=== PATIENT | female | born 1990 | race Caucasian/White ===

== ENCOUNTER 2017-06-04 19:42 | Emergency (ER) | payer BC, OTHER ==
[~2017-06-04] VITALS: Ht 177.8 cm; Wt 113.4 kg
[~2017-06-04 19:42] MED LIST: AMOXICILLIN500 MG PO; BACTRIM DS TAB1 EACH PO; CYCLOBENZAPRINE10 MG PO; IBUPROFEN600 MG PO; IBUPROFEN800 MG PO; IMITREX100 MG PO; KEFLEX500 MG PO; LIDODERM700 MG TOP; NICOTINE PATCH1 EAC1 TD; NORCO 5-325 TA1 EACH PO; NORTRIPTYLINE H50 MG PO; ONDANSETRON ODT8 MG PO; PERCOCET 5-3251 EACH PO; PROMETHAZINE HC25 M1 PO
[2017-06-04] MEDS ORDERED: ZOFRAN ODT4 MG PO (21:29)
[2017-10-08] MEDS ORDERED: BACTRIM DS TAB1 EACH PO (11:33)
[2017-10-09] MEDS ORDERED: IBUPROFEN600 MG PO (17:26)
[2017-10-09] MEDS ORDERED: SULFAMETHOXAZO1 EAC1 PO (17:26)
[2017-10-09] MEDS ORDERED: OXYCODON-ACETA1 EAC2 PO (17:27)
== END 2017-06-04 21:50 | disposition home or self-care (01) ==
LOC: ED 19:42
DX: R10.31 Right lower quadrant pain (principal); J45.909 Unspecified asthma, uncomplicated; I10 Essential (primary) hypertension; F17.200 Nicotine dependence, unspecified, uncomplicated; Z90.49 Acquired absence of other specified parts of digestive tract; Z88.5 Allergy status to narcotic agent
CPT/HCPCS: 74177; 80053; 81001; 84703; 85025; 96361; 96374; 96375; 99284; J1170; J2405; J7030; Q9967

== ENCOUNTER 2017-09-09 10:45 | Day surgery (SDC) | payer BC, OTHER ==
[~2017-09-09] VITALS: Ht 177.8 cm; Wt 131.5 kg
[~2017-09-09 10:45] MED LIST changes: +ZOFRAN ODT4 MG PO
--- NOTE | 2017-09-09 15:22 | NUR ---
09/09/17 1522 Jessica Bennett 1518-PATIENT ARRIVED TO PACU ON RA O2 SAT 97% AWAKE DENIES PAIN OR NAUSEA. DRESSING BETWEEN AND ABDOMEN AND BREASTS CDI.
[2017-09-09] MEDS ORDERED: NORCO 5-325 TA1 EACH PO (15:35)
--- NOTE | 2017-09-16 12:51 | OR ---
[facility] [address] [place], [place] [address] Signed DATE OF OPERATION: 09/09/2017 SURGEON: Yoav Lyon MD PREOPERATIVE DIAGNOSES: 1. Persistent draining abscess, left medial breast with associated mass. 2. Draining abscesses of low midline abdomen and right lower abdominal wall. 3. Underlying hidradenitis suppurativa. POSTOPERATIVE DIAGNOSES: 1. Persistent draining abscess, left medial breast with associated mass. 2. Draining abscesses of low midline abdomen and right lower abdominal wall. 3. Underlying hidradenitis suppurativa. PROCEDURES: 1. Incision and drainage and biopsy of left medial breast with packing with Nu Gauze. 2. Incision and drainage and wound packing of low midline abdomen and right lower abdomen. ANESTHESIA: Local with monitored anesthesia care (Cody Naranjo CRNA). INDICATION: This morbidly obese 27-year-old white woman is a patient of David Hook. She has had longstanding hidradenitis suppurativa, which affected the axilla, groin, and intertriginous spaces of her pannus. She recently has had findings of a left breast abscess in the medial aspect, which included a lump and episodic drainage of purulence. This all began at least 4 weeks ago. She has had similar problems in the past with other areas. She was put on antibiotic, Bactrim DS and changed to doxycycline by David Hook. She has other similar such lesions of the low abdominal wall in the midline and also to the right side. She has numerous lesions from the past in both axilla and groins. She continues to smoke one and half pack of cigarettes a day. Given the findings of ongoing purulence and mass in the left breast, she was taken to operation for local with intravenous sedation to undergo incision and drainage and biopsy as appropriate. The abdominal lesions will be drained as well. FINDINGS: The breast lesion was far better than had been seen in the previous several days. Incision and drainage of skin and breast parenchyma was undertaken and probing of the area down into the breast parenchyma undertaken. Cultures were obtained. Nu Gauze was packed into the wound. Similar such lesion was noted in the midline inferiorly of the Electronically Signed By: YOAV LYON MD 09/16/17 1251 PATIENT NAME: PATY ANDERS OPERATIVE REPORT DATE OF : 89 PHYSICIAN: YOAV LYON MD REPORT #: [id number] REPORT IS CONFIDENTIAL AND NOT TO BE RELEASED WITHOUT AUTHORIZATION [facility] [address] [place], [place] [address] Signed abdominal wall and in the right lower abdomen all along the same distribution of the hidradenitis suppurativa. Those lesions were incised and drained and cultured and packed with Nu Gauze as well. DESCRIPTION OF PROCEDURE: The patient was brought to the operating room and given intravenous sedation with full cardiopulmonary monitoring. The breasts, abdomen, and suprapubic areas were prepared with a chlorhexidine solution and draped sterilely. Preoperative antibiotic Ancef was given. Sequential compression device stockings were used and heparin subcutaneously administered. The left medial mid breast lesion was examined first, 5 mL of 0.25% Marcaine with epinephrine was injected locally. An incision was made with a #15 blade and ultimately an elliptical incision of the skin, subcutaneous tissue and breast tissue undertaken. Probing of the wound did not deliver copious amounts of purulence as had been seen in the office, but the fibrous changes were completely excised. Further probing with a hemostat allowed for placement of a quarter-inch Nu Gauze for packing. Electrocautery was used for hemostasis. Attention was turned towards the low abdominal midline where similar such lesion was noted, it was incised, but no excision of soft tissue or underlying fatty tissue was undertaken. Probing with a hemostat showed a bit of a cavity. Cultures were obtained and Nu Gauze was ultimately packed into the area as well. The right lower abdominal HS lesion on the lower abdominal wall pannus was similarly drained. She was ultimately taken to recovery room in good condition having suffered no complications. Sponge, needle, and instrument counts reported as correct x3. MD CARL Ann/MODL /[id number] Electronically Signed By: YOAV LYON MD 09/16/17 1251 PATIENT NAME: PATY ANDERS OPERATIVE REPORT DATE OF : 89 PHYSICIAN: YOAV LYON MD REPORT #: [id number] REPORT IS CONFIDENTIAL AND NOT TO BE RELEASED WITHOUT AUTHORIZATION [address] [address] Signed cc: David Hook Electronically Signed By: YOAV LYON MD 09/16/17 1251 PATIENT NAME: PATY ANDERS OPERATIVE REPORT DATE OF : [birth year] PHYSICIAN: YOAV LYON MD REPORT #: [id number] REPORT IS CONFIDENTIAL AND NOT TO BE RELEASED WITHOUT AUTHORIZATION
[2017-10-08] MEDS ORDERED: BACTRIM DS TAB1 EACH PO (11:33)
[2017-10-09] MEDS ORDERED: SULFAMETHOXAZO1 EAC1 PO (17:26)
[2017-10-09] MEDS ORDERED: IBUPROFEN600 MG PO (17:26)
[2017-10-09] MEDS ORDERED: OXYCODON-ACETA1 EAC2 PO (17:27)
== END 2017-09-09 16:15 | disposition home or self-care (01) ==
LOC: DS 10:45
PROVIDERS: Surgery
PROC: 0H97XZZ Drainage of Abdomen Skin, External Approach (ICD-10-PCS; 2017-09-09)
PROC: 0HBU0ZX Excision of Left Breast, Open Approach, Diagnostic (ICD-10-PCS; principal; 2017-09-09 14:45)
DX: N60.32 Fibrosclerosis of left breast (principal); L02.211 Cutaneous abscess of abdominal wall; N61.1 Abscess of the breast and nipple; F17.210 Nicotine dependence, cigarettes, uncomplicated; Z88.8 Allergy status to other drugs, medicaments and biological substances; Z90.89 Acquired absence of other organs; Z90.49 Acquired absence of other specified parts of digestive tract; Z79.899 Other long term (current) drug therapy; Z98.890 Other specified postprocedural states
CPT/HCPCS: 00400; 84703; 87070; 87075; 87076; 87077; 87185; 87186; 87205; J0690; J1644; J2250; J2704; J3010; J7120

== ENCOUNTER 2019-02-22 10:16 | Emergency (ER) | payer BC ==
[~2019-02-22] VITALS: Ht 177.8 cm; Wt 127.0 kg
[~2019-02-22 10:16] MED LIST changes: +OXYCODON-ACETA1 EAC2 PO; +SULFAMETHOXAZO1 EAC1 PO
--- OUTSIDE RECORDS SUMMARY | 2019-02-22 10:28 | XMS ---
PreManage Notification: PATY ANDERS Security Unloader Events No recent Security Events currently on file CRITERIA MET - Group Notification - PDMP CARE PROVIDERS NAKUL FIELDS Primary Care 01/18/2017-Current PHONE: Unknown Paige Tompkins [facility] Amy Freire PHONE: Unknown Nadia has no Care Guidelines for this patient. ELanie VISIT COUNT (12 MO.) 1 NARGIS Mauro TOTAL 1 NOTE: Visits indicate total known visits. ED/UCC VISIT TRACKING (12 MO.) 02/22/2019 10:16 NARGIS Brandon OR TYPE: Emergency COMPLAINT: - CRAMPING,VAGINAL BLEEDING INPATIENT VISIT TRACKING (12 MO.) No inpatient visits to display in this time frame [email or web address]
[2019-02-22] MEDS ORDERED: INDOMETHACIN50 MG PO (13:48)
== END 2019-02-22 14:02 | disposition home or self-care (01) ==
LOC: ED 10:16
DX: N93.9 Abnormal uterine and vaginal bleeding, unspecified (principal); I10 Essential (primary) hypertension; J45.909 Unspecified asthma, uncomplicated; F17.200 Nicotine dependence, unspecified, uncomplicated; Z90.49 Acquired absence of other specified parts of digestive tract; Z88.1 Allergy status to other antibiotic agents; Z91.048 Other nonmedicinal substance allergy status
CPT/HCPCS: 36415; 80053; 81001; 85025; 96372; 99284-25; J1885

== ENCOUNTER 2019-03-18 03:15 | Emergency (ER) | payer BC ==
[~2019-03-18] VITALS: Ht 177.8 cm; Wt 136.1 kg
[~2019-03-18 03:15] MED LIST changes: +INDOMETHACIN50 MG PO
--- OUTSIDE RECORDS SUMMARY | 2019-03-18 03:18 | XMS ---
PreManage Notification: PATY ANDERS Security Technology Intern Events No recent Security Events currently on file CRITERIA MET - Group Notification - PDMP - [facility] - 2 Visits in 30 Days CARE PROVIDERS NAKUL FIELDS Primary Care 01/18/2017-Current PHONE: Unknown Paige Tompkins Primary [facility] Mouna PHONE: Unknown Nadia has no Care Guidelines for this patient. ELanie VISIT COUNT (12 MO.) 2 [facility] TOTAL 2 NOTE: Visits indicate total known visits. ED/UCC VISIT TRACKING (12 MO.) 03/18/2019 03:16 NARGIS Brandon OR TYPE: Emergency COMPLAINT: - OPEN SORE 02/22/2019 10:16 NARGIS Brandon OR TYPE: Emergency COMPLAINT: - CRAMPING,VAGINAL BLEEDING DIAGNOSES: - Allergy status to other antibiotic agents status - Nicotine dependence, unspecified, uncomplicated - Other nonmedicinal substance allergy status - Acquired absence of other specified parts of digestive tract - Unspecified asthma, uncomplicated - Essential (primary) hypertension - Abnormal uterine and vaginal bleeding, unspecified INPATIENT VISIT TRACKING (12 MO.) No inpatient visits to display in this time frame [email or web address]
[2019-03-18] MEDS ORDERED: BACTRIM DS TAB1 EACH PO (03:30)
[2019-03-18] MEDS ORDERED: TRAMADOL HCL50 MG PO (05:12)
== END 2019-03-18 05:40 | disposition home or self-care (01) ==
LOC: ED 03:15
DX: L03.317 Cellulitis of buttock (principal); L03.313 Cellulitis of chest wall; I10 Essential (primary) hypertension; F17.200 Nicotine dependence, unspecified, uncomplicated; Z90.49 Acquired absence of other specified parts of digestive tract; Z88.1 Allergy status to other antibiotic agents
CPT/HCPCS: 96372; 99282; J0696

== ENCOUNTER 2024-07-10 04:52 | Emergency (ER) | payer MEDICARE, OTHER ==
[~2024-07-10] VITALS: Ht 177.8 cm; Wt 145.0 kg
[~2024-07-10 04:52] MED LIST changes: +TRAMADOL HCL50 MG PO
--- OUTSIDE RECORDS SUMMARY | 2024-07-10 04:59 | XMS ---
PreManage Notification: PATY ANDERS Security Wiener Packer Events No recent Security Events currently on file CRITERIA MET - 6 ED Visits in 6 Months - Group Notification - [facility] - 2 Visits in 30 Days CARE PROVIDERS ETHAN PELAEZ Internal Medicine Current PHONE: [phone] Nadia has no Care Guidelines for this patient. Ezequiel VISIT COUNT (12 MO.) 14 Marielle Lim [address] [place] [address] TOTAL 15 NOTE: Visits indicate total known visits. ED/UCC VISIT TRACKING (12 MO.) 07/10/2024 04:52 NARGIS Brandon OR TYPE: Emergency COMPLAINT: - CHEST PAIN 07/03/2024 14:37 Marielle Wooten OR TYPE: Emergency DIAGNOSES: - Allergy, unspecified, initial encounter - Allergic reaction 05/15/2024 19:44 Marielle Wooten OR TYPE: Emergency DIAGNOSES: - Hidradenitis suppurativa - Infection following a procedure, other surgical site, initial encounter - Morbid (severe) obesity due to excess calories - side pain 05/05/2024 17:10 Marielle Wooten OR TYPE: Emergency DIAGNOSES: - Unspecified open wound of right front wall of thorax without penetration into thoracic cavity, initial encounter - post op complication - Post-op Problem 03/03/2024 17:37 Marielle Wooten OR TYPE: Emergency DIAGNOSES: - Local infection of the skin and subcutaneous tissue, unspecified - Local infection of the skin and subcutaneous tissue, unspecified - Other injury of unspecified body region, initial encounter - Other injury of unspecified body region, initial encounter - line issues - Wound Drain Evaluation 02/28/2024 12:19 Marielle Wooten [place] TYPE: Emergency DIAGNOSES: - Bronchitis, not specified as acute or chronic - Cough - cough post op dr [email or web address] 01/30/2024 18:28 Marielle Wooten [place] TYPE: Emergency DIAGNOSES: - Allergy, unspecified, initial encounter - Allergic Reaction 12/27/2023 16:52 Marielle Wooten OR TYPE: Emergency DIAGNOSES: - Cutaneous abscess of chest wall - Post-op Problem - pt told to return to ed 12/26/2023 13:27 Marielle Wooten OR TYPE: Emergency DIAGNOSES: - Cellulitis of chest wall - Cutaneous abscess of chest wall - post op complications - Post-op Problem 12/20/2023 12:25 aMrielle Wooten OR TYPE: Emergency DIAGNOSES: - Other complications of procedures, not elsewhere classified, initial encounter - post op issue - Wound Check 10/28/2023 19:31 Marielle Wooten OR TYPE: Emergency DIAGNOSES: - Right lower quadrant pain - Abdominal Pain - Abdominal Pain, Told to come back by ALLAN VILLANUEVA 10/27/2023 16:13 Marielle Wooten OR TYPE: Emergency DIAGNOSES: - Right lower quadrant pain - Abdominal pain 10/27/2023 08:41 Marielle Wooten OR TYPE: Emergency DIAGNOSES: - Abdominal Pain 08/03/2023 14:11 Marielle Wooten OR TYPE: Emergency DIAGNOSES: - Cutaneous abscess of left lower limb - abces on back of thigh - Abscess 07/16/2023 13:33 Marielle Wooten OR TYPE: Emergency DIAGNOSES: - Cutaneous abscess of buttock - Cutaneous abscess of left lower limb - Hidradenitis suppurativa - Unspecified renal colic - Fever (9 Weeks To 74 Years) - infection INPATIENT VISIT TRACKING (12 MO.) No inpatient visits to display in this time frame [email or web address]
[2024-07-10 05:14] LABS: HEMATOCRIT 39.9 % (35.0-50.0); HEMOGLOBIN 13.3 g/dL (12.0-18.0); MCH 29.4 (27-36); MCHC 33.5 g/dl (30-36); MCV 87.7 fl (81-99); PLATELET COUNT 291 K/uL (140-440); RBC 4.55 M/ul (4.3-5.7); RDW 14.3 (10.5-15.0)
[2024-07-10] MEDS ORDERED: ASPIRIN 81 MG CHEW PO ONE (05:15)
[2024-07-10] MEDS ORDERED: KETOROLAC TROMETHAMINE 30 MG/ML VIAL IV ONE (05:15)
[2024-07-10 05:33] LABS: ALBUMIN 2.9 g/dL (3.4-5.0); ALBUMIN/GLOBULIN RATIO 0.64 (1.1-2.4); ANION GAP 12.6 (7-21); BILIRUBIN, TOTAL 0.2 ng/dL (0.2-1.0); BUN/CREATININE RATIO 13.75 (6.0-28.6); CALCIUM 8.6 mg/dL (8.5-10.1); CREATININE, SERUM 0.8 mg/dL (0.55-1.02); MAGNESIUM 1.9 mg/dL (1.8-2.4); POTASSIUM 3.6 mmol/L (3.5-5.1); PROTEIN, TOTAL 7.4 g/dL (6.4-8.2)
[2024-07-10 05:53] LABS: BASOPHILS, MANUAL DIFF 1; EOSINOPHILS, MANUAL DIFF 1; LYMPHOCYTES, MANUAL DIFF 40; MONOCYTES, MANUAL DIFF 7; NEUTROPHILS, MANUAL DIFF 51
[2024-07-10] MEDS ORDERED: MORPHINE SULFATE 4 MG/ML VIAL IV ONE (06:00)
[2024-07-10] MEDS ORDERED: LIDOCAINE & ANTACID 35 ML BTL PO ONE (06:15)
[2024-07-10] MEDS ORDERED: PREDNISONE20 MG PO (06:33)
[2024-07-10] MEDS ORDERED: DEXAMETHASONE SOD PHOS 10 MG/ML VIAL IV ONE (06:45)
[2024-07-10 07:08] VITALS: BP 153/89
--- NOTE | 2024-07-11 19:24 | EKG ---
[facility] [address] [facility] [place] [address] Signed Normal sinus rhythm with sinus arrhythmia Normal ECG No previous ECGs available Confirmed by Radha Sarmiento MD ([id number]) on 07/11/2024 7:24:40 PM Electronically Signed By: RADHA SARMIENTO MD 07/11/241923 PATIENT NAME: PATY ANDERS Electrocardiogram DATE OF : 89 PHYSICIAN: RADHA SARMIENTO MD REPORT #: [id number] REPORT IS CONFIDENTIAL AND NOT TO BE RELEASED WITHOUT AUTHORIZATION
== END 2024-07-10 07:10 | disposition home or self-care (01) ==
LOC: ED 04:52
PROVIDERS: Internal Medicine
DX: R07.1 Chest pain on breathing (principal); I10 Essential (primary) hypertension; F17.200 Nicotine dependence, unspecified, uncomplicated; Z88.8 Allergy status to other drugs, medicaments and biological substances; Z91.09 Other allergy status, other than to drugs and biological substances
CPT/HCPCS: 36415; 71045; 80048; 80053; 83690; 83735; 83880; 84484; 85025; 85379; 93005; 93010; 96374; 96375; 99285-25; A9270; J1100; J1885; J2270